=== PATIENT | female | born 1990 | race Caucasian/White ===

== ENCOUNTER 2016-02-11 13:30 | Inpatient (IN) | payer OTHER ==
[~2016-02-11] VITALS: Ht 160 cm; Wt 130.3 kg
[2016-02-11 14:30] VITALS: BP 101/50; PULSE 86; RESP 16
[2016-02-11 15:00] VITALS: Ht 160 cm; Wt 130.3 kg
[2016-02-11] MEDS ORDERED: BISACODYL (EC) 5 MG TAB PO PRN (15:00)
[2016-02-11] MEDS ORDERED: NACL 0.9% 3 ML SYG IV SCH (15:00)
[2016-02-11] MEDS ORDERED: ONDANSETRON 4 MG INJ IV PRN (15:00)
[2016-02-11] MEDS ORDERED: MAGNESIUM HYDROXIDE 30ML CUP PO PRN (15:00)
[2016-02-11] MEDS ORDERED: LORAZEPAM 2 MG INJ IV PRN (15:30)
[2016-02-11] MEDS ORDERED: ALBUTEROL 0.5% (NEB) 2.5 MG/0.5 ML AMP HHN PRN (15:30)
--- NOTE | 2016-02-11 16:32 | HP ---
DATE OF ADMISSION: 02/11/2016 TIME OF EVALUATION: 1500. REASON FOR ADMISSION: Abdominal pain. The patient was transferred from [facility]. CONSULTANTS: 1. Dr. Jesús Hernández, Gastroenterology. 2. Dr. Abner Walker, General Surgery. HISTORY OF PRESENT ILLNESS: This is a 25-year-old female, with a past medical history of morbid obesity, asthma and anxiety, who went to the emergency room at [facility] because of abdominal pain that started the morning of 02/11/2016. As per the patient, this pain woke her up from sleep. The patient verbalized abdominal pain as epigastric and right upper quadrant, with radiation to the back. The patient denied any associated nausea or vomiting. She denied eating anything unusual. As per the patient, she started having abdominal pain since 02/07/2016 that was waxing and waning over the past few days. The patient waited until 02/11/2016 until her pain became very severe before she went to the nearest emergency room. In the emergency room at [facility], the patient underwent a right upper quadrant ultrasound that showed gallstones in the region of the gallbladder neck, with no gallbladder wall thickening or pericholecystic free fluid, along with hepatic steatosis. The patient's common bile duct was measuring 4.7 mm in maximal dimension. The patient was treated with IV morphine and IV fluids and the patient was transferred to [facility] because of insurance reasons. PAST MEDICAL HISTORY: Asthma, anxiety, ovarian cyst. PAST SURGICAL HISTORY: None. HOME MEDICATIONS: 1. Advair Diskus 250/50 one inhalation b.i.d. 2. Singulair 10 mg p.o. at bedtime. 3. ProAir HFA 8.5 gram inhaled, 2 puffs q.6h. p.r.n. shortness of breath. ALLERGIES: NO KNOWN DRUG ALLERGIES. SOCIAL HISTORY: Denies any history of tobacco, alcohol or illicit drug use. The patient works in sales. The patient has 2 kids. FAMILY HISTORY: Positive family history of diabetes and hypertension. No history of heart disease. Positive family history of gallstones and cholecystectomy. REVIEW OF SYSTEMS: A 12-point review of systems were made and the review of systems are negative, other than what is mentioned in the history of present illness. PHYSICAL EXAMINATION: VITAL SIGNS: Temperature 98.6, pulse rate 86, respiratory rate 16, blood pressure 101/50, oxygen saturation 97% on room air. GENERAL: This is a morbidly obese, female, lying in bed, in no apparent distress. HEENT: Head is normocephalic and atraumatic. Eyes, anicteric sclerae. Conjunctivae are clear. ENT: Nasal septum is midline. The oral mucosa is dry. NECK: Short, with increased neck circumference. RESPIRATORY: Bilaterally diminished breath sounds. No adventitious breath sounds heard. No use of accessory muscles of respiration. CARDIAC: Regular rate and rhythm. No murmurs heard. ABDOMEN: Soft. Tender to touch in the epigastric area and right upper quadrant. No guarding. No rebound tenderness. GENITOURINARY: Deferred. EXTREMITIES: No cyanosis, no clubbing, no edema. Peripheral pulses are palpable. NEUROLOGIC: The patient is awake, alert and oriented. Cranial nerves II through XII are grossly intact. No focal weakness. LABORATORY AND DIAGNOSTIC DATA: 1. WBC 7.9, hemoglobin 14.0, hematocrit 42.4, platelet count 196. Sodium 139, potassium 4.0, chloride 99, carbon dioxide 26, BUN 9, creatinine 0.52, glucose 115, total protein 7.0, calcium 8.9, alkaline phosphatase 121. 2. Urinalysis. Urine leukocyte esterase 2+, urine microscopic WBC >50, urine protein negative. Urine ketones negative. 3. Urine test negative. 4. Right upper quadrant ultrasound that was done [facility]. Gallstone in the region of the gallbladder neck. No gallbladder wall thickening or pericholecystic free fluid is seen. Hepatic steatosis. The common bile duct measures 4.7 mm in maximal dimension. IMPRESSION: This is a 25-year-old female who went to the local emergency room with the chief complaint of abdominal pain, who was found to have evidence of cholelithiasis, who will be admitted to [facility] for further treatment and evaluation. ASSESSMENT AND PLAN: 1. Symptomatic cholelithiasis. Gallbladder ultrasound shows gallstone in the gallbladder neck. A gastroenterology consult will be obtained on this patient. The patient probably needs an MRCP, which will be ordered on this patient. Will also involve general surgery on the case. The patient will be provided with adequate pain control. The patient will be kept n.p.o. The patient will be started on IV fluids. The patient has no leukocytosis or any febrile illness. There is no evidence of any impending cholangitis. Hence, the patient will not be started on any antibiotics at this time. The patient's LFTs are within normal limits, except for alkaline phosphatase. 2. Positive urinalysis. The patient's urinalysis showed positive leukocyte esterase and a urine WBC of >50. The patient denied any urinary symptoms. The patient remains afebrile. She has no leukocytosis. Urine culture will be obtained. Will await until the urine cultures are available. 3. Asthma. No evidence of any exacerbation. The patient will be maintained on maintenance inhalers and p.r.n. inhalers. The patient will be maintained on leukotriene inhibitors. 4. Anxiety. The patient complains of anxiety; however, the patient does not take any medication specifically for anxiety. The patient will be started on p.r.n. anxiolytics. 5. Obesity. The patient is morbidly obese with a BMI of 50.9 kilograms per meter squared. A fasting lipid panel will be obtained. A hemoglobin A1c will be obtained. A dietary consult will be obtained for advice regarding diet for weight reduction. PLAN: The patient will be admitted to the inpatient medical/surgical floor. The patient will be kept n.p.o., except for medications. The patient will be started on DVT prophylaxis and gastrointestinal prophylaxis. Activities will be as tolerated. The patient will remain FULL CODE. The rest of the patient's management will be based on the clinical course, the results of the diagnostic studies, and inputs from the consultants. Based on the patient's clinical presentation, she most probably requires at least 1 midnight's stay for further management and evaluation of her clinical presentation. The case and management of this patient was fully discussed with Dr. Carreno. Approximately 50 minutes was spent on the history and physical of this patient. KRISTEN CARRENO MD, AM/TAISHA Conf#: [id number] DID#: [id number] MTDD
[2016-02-11] MEDS: D5W-0.45 NACL + KCL 10 MEQ 1,000 ML IV SCH (17:03)
[2016-02-11 17:21] LABS: ADD UMIC YES; URINE BILIRUBIN (Dip) NEGATIVE (NEGATIVE); URINE BLOOD (Dip) 2+ (NEGATIVE); URINE COLOR OR (YELLOW); URINE GLUCOSE (Dip) NEGATIVE (NEGATIVE); URINE KETONES (Dip) NEGATIVE (NEGATIVE); URINE LEUKOCYTE ESTERASE (Dip) 2+ (NEGATIVE); URINE NITRITE (Dip) NEGATIVE (NEGATIVE); URINE TOTAL PROTEIN (Dip) TRACE (NEGATIVE); URINE UROBILINOGEN (Dip) 0.2 E.U./dL (0.1-1.0)
[2016-02-11] MEDS: HYDROCODONE/APAP (5/325) TAB PO PRN (17:34)
[2016-02-11 17:52] LABS: BACTERIA,URINE MANY; SQUAMOUS EPITHELIAL CELL,UR MANY; TRICHOMONAS,URINE MODERATE
[2016-02-11] MEDS: MONTELUKAST 10 MG TAB PO SCH (20:16)
[2016-02-11] MEDS: FAMOTIDINE 20 MG INJ IV SCH (20:17)
[2016-02-11] MEDS: SALMETEROL/FLUTICASONE 250/50 INHA INH SCH (20:17)
[2016-02-11 20:30] VITALS: BP 116/56; PULSE 89; RESP 20
[2016-02-12] MEDS: D5W-0.45 NACL + KCL 10 MEQ 1,000 ML IV SCH ×4 (02:24→22:19)
[2016-02-12 05:28] LABS: ALBUMIN 3.6 g/dl (3.3-4.9); BASOPHILS % 0.2 % (0.0-2.0); EOSINOPHILS # 0.3 10^3/ul (0.0-0.5); EOSINOPHILS % 4.3 % (0.0-7.0); HEMATOCRIT 39.9 % (37.0-47.0); LYMPHOCYTES # 2.3 10^3/ul (0.8-2.9); LYMPHOCYTES % 31.8 % (15.0-51.0); MEAN CORPUSCULAR HEMOGLOBIN 28.4 pg (29.0-33.0); MEAN CORPUSCULAR HGB CONC 32.6 g/dl (32.0-37.0); MEAN CORPUSCULAR VOLUME 87.2 fl (82.0-101.0); MEAN PLATELET VOLUME 9.9 fl (7.4-10.4); MONOCYTE # 0.6 10^3/ul (0.3-0.9); MONOCYTES % 8.1 % (0.0-11.0); NEUTROPHIL # 4.1 10^3/ul (1.6-7.5); NEUTROPHILS % 55.6 % (39.0-77.0); PLATELET COUNT 199 10^3/UL (140-440); RED BLOOD COUNT 4.57 10^6/ul (4.20-5.40); RED CELL DISTRIBUTION WIDTH 12.6 % (11.5-14.5); UNCORRECTED WBC 7.3 10^3/ul (4.8-10.8); WHITE BLOOD COUNT 7.3 10^3/ul (4.8-10.8)
[2016-02-12 05:30] LABS: BILIRUBIN,INDIRECT 0.4 mg/dl (0-1.1); BILIRUBIN,TOTAL 0.4 mg/dl (0.2-1.3); CREATININE 0.64 mg/dl (0.44-1.00)
[2016-02-12 05:31] LABS: ALBUMIN/GLOBULIN RATIO 1.12; CALCIUM 8.4 mg/dl (8.4-10.2); MAGNESIUM 1.9 mg/dl (1.7-2.5); PHOSPHORUS 3.9 mg/dl (2.5-4.9); TOTAL PROTEIN 6.8 g/dl (6.1-8.1)
[2016-02-12 05:47] LABS: CONDITION 1
[2016-02-12 06:02] LABS: THYROID STIMULATING HORMONE 2.01 MIU/L (0.465-4.680)
[2016-02-12 08:00] VITALS: BP 136/72; PULSE 72; RESP 18
[2016-02-12] MEDS: FAMOTIDINE 20 MG INJ IV SCH ×2 (08:37→21:13)
[2016-02-12] MEDS: SALMETEROL/FLUTICASONE 250/50 INHA INH SCH ×2 (08:37→21:13)
--- NOTE | 2016-02-12 10:12 | PN ---
Date/Time of Note Date/Time of Note DATE: 02/12/16 TIME: 10:12 Assessment/Plan VTE Prophylaxis VTE Prophylaxis Intervention: SCD's Lines/Catheters IV [facility]ter Type [facility] Peripheral IV Urinary Cath still in place: No Assessment/Plan Chief Complaint/Hosp Course 1. Cholelithiasis. Gallbladder ultrasound shows gallstone in the gallbladder neck. Pending MRCP. General surgery and gastroenterology on the case. Continue pain control. 2. Positive urinalysis. Pending urine culture. The patient remains afebrile. 3. Asthma. No evidence of any exacerbation. The patient will be maintained on maintenance inhalers and p.r.n. inhalers. The patient will be maintained on leukotriene inhibitors. 4. Anxiety. The patient complains of anxiety; however, the patient does not take any medication specific for anxiety. Continue p.r.n. anxiolytics. 5. Obesity. The patient is morbidly obese with a BMI of 50.9 kilograms per meter squared. Weight reduction advised. 6. Fluids, electrolytes, and nutrition. NPO except for medications. 7. DVT prophylaxis. Bilateral SCDs. 8. Gastrointestinal prophylaxis. Histamine 2 receptor blockers. 9. Plan. Continue pain control. Continue IV fluids. Await MRCP. Await further inputs from gastroenterology and general surgery. Case discussed with Dr. Valverde. Problems: Subjective 24 Hr Interval Summary Free Text/Dictation Complains of abdominal pain. Denies any nausea or vomiting. Exam/Review of Systems Vital Signs Vitals Vital Signs Date Time Temp Pulse Resp B/P Pulse Ox O2 Delivery O2 Flow Rate FiO2 02/11/16 20:30 97.9 89 20 116/56 94 Room Air Intake and Output 02/11/16 02/11/16 02/12/16 15:00 23:00 07:00 Intake Total 1000 ml Balance 1000 ml Exam GENERAL: This is a morbidly obese, female, lying in bed, in no apparent distress. HEENT: Head is normocephalic and atraumatic. Eyes, anicteric sclerae. Conjunctivae are clear. ENT: Nasal septum is midline. The oral mucosa is dry. NECK: Short, with increased neck circumference. RESPIRATORY: Bilaterally diminished breath sounds. No adventitious breath sounds heard. No use of accessory muscles of respiration. CARDIAC: Regular rate and rhythm. No murmurs heard. ABDOMEN: Soft. Tender to touch in the epigastric area and right upper quadrant. No guarding. No rebound tenderness. GENITOURINARY: Deferred. EXTREMITIES: No cyanosis, no clubbing, no edema. Peripheral pulses are palpable. NEUROLOGIC: The patient is awake, alert and oriented. Cranial nerves II through XII are grossly intact. No focal weakness. Results Result Diagram: 02/12/16 0431 02/12/16 0431 Results 24 hrs Laboratory Tests Test 02/11/16 17:00 02/12/16 04:31 Urine Bacteria MANY Urine Bilirubin NEGATIVE Urine Clarity CLEAR Urine Color OR Urine Glucose NEGATIVE Urine Hemoglobin 2+ H Urine Ketones NEGATIVE Urine Leukocyte Esterase 2+ H Urine Microscopic RBC 5-10 Urine Microscopic WBC >50 Urine Nitrite NEGATIVE Urine Test NEGATIVE Urine Specific [place] 1.025 Urine Squamous Epithelial Cells MANY Urine Total Protein TRACE Urine Trichomonas MODERATE Urine Urobilinogen 0.2 E.U./dL Urine pH 5.5 Alanine Aminotransferase (ALT/SGPT) 43 Albumin 3.6 Albumin/Globulin Ratio 1.12 Alkaline Phosphatase 106 Anion Gap 14 Aspartate Amino Transf (AST/SGOT) 27 Basophils # 0.0 Basophils % 0.2 Blood Morphology Comment Blood Urea Nitrogen 8 Calcium Level 8.4 Carbon Dioxide Level 32 H Chloride Level 99 Creatinine 0.64 Direct Bilirubin 0.00 Eosinophils # 0.3 Eosinophils % 4.3 Free Thyroxine 1.27 Globulin 3.20 Glucose Level 114 Hematocrit 39.9 Hemoglobin 13.0 Hemoglobin A1c 5.6 Indirect Bilirubin 0.4 Lymphocytes # 2.3 Lymphocytes % 31.8 Magnesium Level 1.9 Mean Corpuscular Hemoglobin 28.4 L Mean Corpuscular Hemoglobin Concent 32.6 Mean Corpuscular Volume 87.2 Mean Platelet Volume 9.9 Monocytes # 0.6 Monocytes % 8.1 Neutrophils # 4.1 Neutrophils % 55.6 Nucleated Red Blood Cells # 0.0 Nucleated Red Blood Cells % 0.0 Phosphorus Level 3.9 Platelet Count 199 Potassium Level 4.0 Red Blood Count 4.57 Red Cell Distribution Width 12.6 Sodium Level 141 Thyroid Stimulating Hormone (TSH) 2.010 Total Bilirubin 0.4 Total Protein 6.8 White Blood Count 7.3 Medications Medications Current Medications Ondansetron HCl (Zofran Inj) 4 mg Q6H PRN IV NAUSEA AND/OR VOMITING; Start at 15:00 Acetaminophen/ Hydrocodone Bitart ([place] (5/325)) 1 tab Q6H PRN PO MODERATE PAIN LEVEL 4-6 Last administered on 02/11/16at 17:34; Admin Dose 1 TAB; Start 02/11/16 at 15:00 Morphine Sulfate (morphine) 2 mg Q4H PRN IV SEVERE PAIN LEVEL 7-10; Start at 15:00 Magnesium Hydroxide (Milk Of Mag) 30 ml DAILY PRN PO CONSTIPATION; Start 02/10 at 15:00 Bisacodyl (Dulcolax) 5 mg DAILY PRN PO CONSTIPATION; Start 02/11/16 at 15:00 Famotidine 20 mg 20 mg Q12 IV Last administered on 02/12/16at 08:37; Admin Dose 20 MG; Start 02/11/16 at 21:00 Potassium Chloride/Dextrose/ Sod Cl (D5-1/2ns + KCl 10 Meq) 1,000 ml @ 100 mls/ hr Q10H IV Last administered on 02/12/16at 02:24; Admin Dose 100 MLS/HR; Start 02/11/16 at 16:30 Montelukast Sodium (Singulair) 10 mg HS PO Last administered on 02/11/16at 20: 16; Admin Dose 10 MG; Start 02/11/16 at 21:00 Salmeterol Xinafoate/ Fluticasone (Advair 250/50 Diskus) 1 inh BID INH Last administered on 02/12/16at 08:37; Admin Dose 1 INH; Start 02/11/16 at 21:00 Lorazepam (Ativan) 1 mg Q6H PRN IV Anxiety; Start 02/11/16 at 15:30 KRISTEN MORRIS NP Feb 12, 2016 10:12
[2016-02-12] MEDS: HYDROCODONE/APAP (5/325) TAB PO PRN (10:41)
--- NOTE | 2016-02-12 11:07 | CONS ---
Date/Time of Note Date/Time of Note DATE: 02/12/16 TIME: 11:06 Assessment/Plan Assessment/Plan Additional Assessment/Plan [facility] INITIAL INPATIENT CONSULTATION NOTE ASSESSMENT AND PLAN: A very-pleasant 25-year-old young lady with comorbid issues including BMI 50.9, admitted through the emergency department for symptomatically cholelithiasis and biliary colic. Outside workup consistent with diagnosis. Awaiting MRCP results. Patient will likely require semi- electively laparoscopic cholecystectomy. Will follow-up after MRCP results are available. Discussed with patient and her uncle and answered all her questions to the best my ability. With above assessment, I've recommended the followin. Agree with MRCP 2. Treat symptoms 3. Semi elective laparoscopic cholecystectomy in the next available elective time slot Thank you very much for having me involved in the care of this very pleasant young lady and her wonderful family. I will continue to follow her along with you closely and will be available to answer any questions at area code [phone]. TOTAL VISIT TIME: 45 minutes of which more than half was spent in [id number] discussion with the patient, discussions with family, as well as coordination of care between multiple physicians and providers. Disclaimer: Inadvertent spelling and grammatical errors are likely due to EHR/ dictation software use and do not reflect on the quality of delivered patient care. Also, please note that the electronic time recorded on this node does not necessarily reflect the actual time of the visit. PLACE OF SERVICE: [facility], second Floor [facility] DATE OF CONSULTATION: 02/12/2016 HISTORY OF PRESENT ILLNESS: The patient is a very pleasant 25-year-old young lady with comorbid issues including BMI 50.9, admitted through the emergency department for a few day history of right upper quadrant abdominal pain associated with mild nausea and no significant vomiting. No other prior episodes similar to this. Per report, outside ultrasound showed normal gallbladder wall and normal common bile duct with a stone near the cystic duct area. MRCP was ordered but is still pending. Patient does not report any hematemesis or blood in the stool or urine. Last bowel movement was yesterday as well as flatus. No reported chronic issues with constipation or diarrhea. No changes in hearing or vision, difficulty with breathing or swallowing, prior cardiopulmonary disease new skin rashes, joint pain, musculoskeletal disease, neurologic, psychiatric, or psychologic problems. Patient described the pain as a right upper quadrant type pain without radiation, between 8 to 10 out of 10 in severity and mostly dull in character. At my visit, the patient did not have any significant pain complaints. PAST MEDICAL HISTORY 1. BMI 50.9 2. Asthma 3. Anxiety 4. Ovarian cyst PAST SURGICAL HISTORY None ALLERGIES: NO KNOWN DRUG ALLERGIES MEDICATIONS 1. Advair Diskus 250/50 one inhalation b.i.d. 2. Singulair 10 mg p.o. at bedtime. 3. ProAir HFA 8.5 gram inhaled, 2 puffs q.6h. p.r.n. shortness of breath. SOCIAL HISTORY: The patient lives with family. - Tob; - ETOH; - IVDU FAMILY HISTORY: Diabetes, hypertension, gallstone disease and cholecystectomy in the family. There are no other significant medical, surgical or oncologic issues in the family as reported by the patient or reflected in the chart. REVIEW OF SYSTEMS: No other pertinent positives or pertinent negatives in a complete 14 point review of systems other than mentioned in this note. PHYSICAL EXAMINATION GENERAL: The patient appears to be a very pleasant young lady of descent lying in bed, appearing stated age, slightly overweight and otherwise in no acute distress. BMI 50.9 VITAL SIGNS: AVSS (please also see below) HEENT: Normocephalic and atraumatic. Extraocular muscles and hearing are grossly intact bilaterally and symmetrically. Sclerae are nonicteric. Oral cavity is clear; oral mucosa appear to be pink and moist. Dentition: fair. NECK: Supple. There is no lymphadenopathy or JVD. There is no submental, submandibular or supraclavicular lymphadenopathy. CHEST: Rises symmetrically with each breath; patient is breathing comfortably. There are no audible wheezes, rales or rhonchi on the gross exam. HEART: Pulse is regular and palpable on the right wrist. Capillary refill is normal. Carotid pulses are palpable bilaterally and symmetrically in the neck. EXTREMITIES: Lower extremities contain no pitting edema around the ankles bilaterally and symmetrically. ABDOMEN: Abdomen is soft, mild to moderately tender to palpation in the right upper quadrant and nondistended. No evidence of ascites, organomegaly, caput medusae, engorged subcutaneous veins, or other abnormalities. There are no peritoneal signs or guarding. SKIN: Appears to be pink and feels warm to touch. NEUROLOGIC: Awake, alert, and follows commands appropriately. LABORATORY DATA: See below IMAGING: See electronic chart. Please note that I've personally reviewed all pertinent available images and I agree in general with their overall reported findings. Consultation Date/Type/Reason Admit Date/Time Feb 11, 2016 at 14:29 Social History Smoking Status: Never smoker Exam/Review of Systems Vital Signs Vitals Vital Signs Date Time Temp Pulse Resp B/P Pulse Ox O2 Delivery O2 Flow Rate FiO2 02/12/16 08:00 98.6 72 18 136/72 96 Room Air Intake and Output 02/11/16 02/11/16 02/12/16 15:00 23:00 07:00 Intake Total 1000 ml Balance 1000 ml Results Result Diagram: 02/12/16 0431 02/12/16 0431 Results 24 hrs Laboratory Tests Test 02/11/16 17:00 02/12/16 04:31 Urine Bacteria MANY Urine Bilirubin NEGATIVE Urine Clarity CLEAR Urine Color OR Urine Glucose NEGATIVE Urine Hemoglobin 2+ H Urine Ketones NEGATIVE Urine Leukocyte Esterase 2+ H Urine Microscopic RBC 5-10 Urine Microscopic WBC >50 Urine Nitrite NEGATIVE Urine Test NEGATIVE Urine Specific [place] 1.025 Urine Squamous Epithelial Cells MANY Urine Total Protein TRACE Urine Trichomonas MODERATE Urine Urobilinogen 0.2 E.U./dL Urine pH 5.5 Alanine Aminotransferase (ALT/SGPT) 43 Albumin 3.6 Albumin/Globulin Ratio 1.12 Alkaline Phosphatase 106 Anion Gap 14 Aspartate Amino Transf (AST/SGOT) 27 Basophils # 0.0 Basophils % 0.2 Blood Morphology Comment Blood Urea Nitrogen 8 Calcium Level 8.4 Carbon Dioxide Level 32 H Chloride Level 99 Creatinine 0.64 Direct Bilirubin 0.00 Eosinophils # 0.3 Eosinophils % 4.3 Free Thyroxine 1.27 Globulin 3.20 Glucose Level 114 Hematocrit 39.9 Hemoglobin 13.0 Hemoglobin A1c 5.6 Indirect Bilirubin 0.4 Lymphocytes # 2.3 Lymphocytes % 31.8 Magnesium Level 1.9 Mean Corpuscular Hemoglobin 28.4 L Mean Corpuscular Hemoglobin Concent 32.6 Mean Corpuscular Volume 87.2 Mean Platelet Volume 9.9 Monocytes # 0.6 Monocytes % 8.1 Neutrophils # 4.1 Neutrophils % 55.6 Nucleated Red Blood Cells # 0.0 Nucleated Red Blood Cells % 0.0 Phosphorus Level 3.9 Platelet Count 199 Potassium Level 4.0 Red Blood Count 4.57 Red Cell Distribution Width 12.6 Sodium Level 141 Thyroid Stimulating Hormone (TSH) 2.010 Total Bilirubin 0.4 Total Protein 6.8 White Blood Count 7.3 Medications Medications Current Medications Ondansetron HCl (Zofran Inj) 4 mg Q6H PRN IV NAUSEA AND/OR VOMITING; Start at 15:00 Acetaminophen/ Hydrocodone Bitart ([place] (5/325)) 1 tab Q6H PRN PO MODERATE PAIN LEVEL 4-6 Last administered on 02/12/16at 10:41; Admin Dose 1 TAB; Start 02/11/16 at 15:00 Morphine Sulfate (morphine) 2 mg Q4H PRN IV SEVERE PAIN LEVEL 7-10; Start at 15:00 Magnesium Hydroxide (Milk Of Mag) 30 ml DAILY PRN PO CONSTIPATION; Start 02/10 at 15:00 Bisacodyl (Dulcolax) 5 mg DAILY PRN PO CONSTIPATION; Start 02/11/16 at 15:00 Famotidine 20 mg 20 mg Q12 IV Last administered on 02/12/16at 08:37; Admin Dose 20 MG; Start 02/11/16 at 21:00 Potassium Chloride/Dextrose/ Sod Cl (D5-1/2ns + KCl 10 Meq) 1,000 ml @ 100 mls/ hr Q10H IV Last administered on 02/12/16at 02:24; Admin Dose 100 MLS/HR; Start 02/11/16 at 16:30 Montelukast Sodium (Singulair) 10 mg HS PO Last administered on 02/11/16at 20: 16; Admin Dose 10 MG; Start 02/11/16 at 21:00 Salmeterol Xinafoate/ Fluticasone (Advair 250/50 Diskus) 1 inh BID INH Last administered on 02/12/16at 08:37; Admin Dose 1 INH; Start 02/11/16 at 21:00 Lorazepam (Ativan) 1 mg Q6H PRN IV Anxiety; Start 02/11/16 at 15:30 Acetaminophen (Tylenol Tab) 650 mg Q6H PRN PO PAIN AND OR ELEVATED TEMP; Start 02/12/16 at 10:30 TIO LOTT M.D. Feb 12, 2016 11:07
[2016-02-12] MEDS: morphine 2 MG INJ IV PRN (15:00)
[2016-02-12 20:00] VITALS: BP 90/50; PULSE 72; RESP 18
[2016-02-12] MEDS: MONTELUKAST 10 MG TAB PO SCH (21:13)
--- NOTE | 2016-02-12 22:10 | RADRPT ---
PROCEDURE: MR Abdomen and MRCP. CLINICAL INDICATION: Right upper quadrant pain. TECHNIQUE: MRI abdomen without contrast and MRCP was performed on a 1.5 Pita high field scanner. Routine axial, sagittal and coronal sequences were obtained. 3-D coronal rotating MIP images of the biliary tree are available for review. COMPARISON: None available FINDINGS: MRI Abdomen: The liver is normal in size and homogeneous in signal intensity. No liver mass lesion or intrahepatic biliary dilatation is seen. The spleen is normal in size and homogeneous in signal intensity. The stomach is partially collapsed but grossly unremarkable. The pancreas is unremarkable. The kidneys are unremarkable. There is no evidence of hydronephrosis, hydroureter, renal mass, or r enal calculi. The adrenal glands and kidneys are symmetric and appear normal. The aorta is of normal caliber. There is no retroperitoneal lymphadenopathy. The bowel and mesentery, as visualized, are unremarkable. MRCP: The gallbladder is not visualized. The biliary tree is not dilated. Common bile duct measures 3 mm. No intrahepatic or extrahepatic biliary ductal dilatation is present. The pancreatic duct is unremarkable. IMPRESSION: 1. The gallbladder is not visualized and suggest previous cholecystectomy. 2. No evidence of intrahepatic or extrahepatic biliary ductal dilatation. 3. No evidence of choledocholithiasis. RPTAT: HLDM .El Carpenter MD, MD Date Time Electronically viewed and signed by .El Carpenter MD, on 02/12/2016 22:09 .M/
[2016-02-12 22:24] VITALS: BP 114/60; PULSE 75
[2016-02-13] MEDS: ACETAMINOPHEN 325 MG TAB PO PRN ×2 (00:33→16:49)
[2016-02-13 08:18] VITALS: BP 118/53; RESP 22
[2016-02-13] MEDS: FAMOTIDINE 20 MG INJ IV SCH ×2 (09:40→20:55)
[2016-02-13] MEDS: SALMETEROL/FLUTICASONE 250/50 INHA INH SCH ×2 (09:40→20:55)
[2016-02-13] MEDS: D5W-0.45 NACL + KCL 10 MEQ 1,000 ML IV SCH ×2 (09:49→18:30)
[2016-02-13 10:58] LABS: BASOPHILS % 0.5 % (0.0-2.0); EOSINOPHILS # 0.2 10^3/ul (0.0-0.5); EOSINOPHILS % 3.2 % (0.0-7.0); LYMPHOCYTES # 1.6 10^3/ul (0.8-2.9); LYMPHOCYTES % 25.3 % (15.0-51.0); MEAN CORPUSCULAR HEMOGLOBIN 28.2 pg (29.0-33.0); MEAN CORPUSCULAR HGB CONC 32.5 g/dl (32.0-37.0); MEAN CORPUSCULAR VOLUME 86.5 fl (82.0-101.0); MEAN PLATELET VOLUME 9.6 fl (7.4-10.4); MONOCYTE # 0.4 10^3/ul (0.3-0.9); MONOCYTES % 6.9 % (0.0-11.0); NEUTROPHILS % 64.1 % (39.0-77.0); PLATELET COUNT 180 10^3/UL (140-440); RED BLOOD COUNT 4.62 10^6/ul (4.20-5.40); RED CELL DISTRIBUTION WIDTH 12.9 % (11.5-14.5); UNCORRECTED WBC 6.2 10^3/ul (4.8-10.8); WHITE BLOOD COUNT 6.2 10^3/ul (4.8-10.8)
[2016-02-13 11:06] LABS: CONDITION 1
[2016-02-13 11:21] LABS: ALBUMIN 3.8 g/dl (3.3-4.9)
[2016-02-13 11:22] LABS: POTASSIUM 3.7 mmol/L (3.5-5.1)
[2016-02-13 11:24] LABS: ALBUMIN/GLOBULIN RATIO 1.18; BILIRUBIN,INDIRECT 0.3 mg/dl (0-1.1); BILIRUBIN,TOTAL 0.3 mg/dl (0.2-1.3); CREATININE 0.51 mg/dl (0.44-1.00)
[2016-02-13 11:25] LABS: CALCIUM 8.7 mg/dl (8.4-10.2)
[2016-02-13 11:26] LABS: MAGNESIUM 1.9 mg/dl (1.7-2.5); PHOSPHORUS 3.6 mg/dl (2.5-4.9)
--- NOTE | 2016-02-13 11:45 | PN ---
Date/Time of Note Date/Time of Note DATE: 02/13/16 TIME: 11:43 Assessment/Plan VTE Prophylaxis VTE Prophylaxis Intervention: ambulation, SCD's Lines/Catheters IV Catheter Type (from [facility]): Peripheral IV Urinary Cath still in place: No Assessment/Plan Chief Complaint/Hosp Course 1. Cholelithiasis. Gallbladder ultrasound shows gallstone in the gallbladder neck. MRCP negative for choledocholithiasis. Of note, MRCP suggesting prior cholecystectomy. This could be a discrepancy (ultrasound from [facility] done on 02/11/2016 showing gall bladder). The patient denies any prior surgical history. General surgery and gastroenterology on the case. Continue pain control. 2. Urinary tract infection. Will start the patient on antibiotics. 3. Asthma. No evidence of any exacerbation. The patient will be maintained on maintenance inhalers and p.r.n. inhalers. The patient will be maintained on leukotriene inhibitors. 4. Anxiety. The patient complains of anxiety; however, the patient does not take any medication specific for anxiety. Continue p.r.n. anxiolytics. 5. Obesity. The patient is morbidly obese with a BMI of 50.9 kilograms per meter squared. Weight reduction advised. 6. Fluids, electrolytes, and nutrition. Clear liquids. Continue IV fluids. 7. DVT prophylaxis. Bilateral SCDs. 8. Gastrointestinal prophylaxis. Histamine 2 receptor blockers. 9. Plan. Continue pain control. Continue IV fluids. Start antibiotics. Await further inputs from gastroenterology and general surgery. Case discussed with Dr. Valverde. Problems: Subjective 24 Hr Interval Summary Free Text/Dictation Abdominal pain well controlled with analgesics. No nausea/vomiting. Exam/Review of Systems Vital Signs Vitals Vital Signs Date Time Temp Pulse Resp B/P Pulse Ox O2 Delivery O2 Flow Rate FiO2 02/13/16 08:18 98.5 81 22 118/53 97 02/12/16 20:00 Room Air Intake and Output 02/12/16 02/12/16 02/13/16 15:00 23:00 07:00 Intake Total 1100 ml 1250 ml Balance 1100 ml 1250 ml Exam GENERAL: This is a morbidly obese, female, lying in bed, in no apparent distress. HEENT: Head is normocephalic and atraumatic. Eyes, anicteric sclerae. Conjunctivae are clear. ENT: Nasal septum is midline. The oral mucosa is dry. NECK: Short, with increased neck circumference. RESPIRATORY: Bilaterally diminished breath sounds. No adventitious breath sounds heard. No use of accessory muscles of respiration. CARDIAC: Regular rate and rhythm. No murmurs heard. ABDOMEN: Soft. Tender to touch in the epigastric area and right upper quadrant. No guarding. No rebound tenderness. GENITOURINARY: Deferred. EXTREMITIES: No cyanosis, no clubbing, no edema. Peripheral pulses are palpable. NEUROLOGIC: The patient is awake, alert and oriented. Cranial nerves II through XII are grossly intact. No focal weakness. Results Result Diagram: 02/13/16 1032 02/13/16 1032 Results 24 hrs Laboratory Tests Test 02/13/16 10:30 02/13/16 10:32 Magnesium Level 1.9 Phosphorus Level 3.6 Alanine Aminotransferase (ALT/SGPT) 38 Albumin 3.8 Albumin/Globulin Ratio 1.18 Alkaline Phosphatase 115 Anion Gap 13 Aspartate Amino Transf (AST/SGOT) 23 Basophils # 0.0 Basophils % 0.5 Blood Morphology Comment Blood Urea Nitrogen 4 L Calcium Level 8.7 Carbon Dioxide Level 30 Chloride Level 101 Creatinine 0.51 Direct Bilirubin 0.00 Eosinophils # 0.2 Eosinophils % 3.2 Globulin 3.20 Glucose Level 113 Hematocrit 40.0 Hemoglobin 13.0 Indirect Bilirubin 0.3 Lymphocytes # 1.6 Lymphocytes % 25.3 Mean Corpuscular Hemoglobin 28.2 L Mean Corpuscular Hemoglobin Concent 32.5 Mean Corpuscular Volume 86.5 Mean Platelet Volume 9.6 Monocytes # 0.4 Monocytes % 6.9 Neutrophils # 4.0 Neutrophils % 64.1 Nucleated Red Blood Cells # 0.0 Nucleated Red Blood Cells % 0.0 Platelet Count 180 Potassium Level 3.7 Red Blood Count 4.62 Red Cell Distribution Width 12.9 Sodium Level 140 Total Bilirubin 0.3 Total Protein 7.0 White Blood Count 6.2 Medications Medications Current Medications Ondansetron HCl (Zofran Inj) 4 mg Q6H PRN IV NAUSEA AND/OR VOMITING; Start at 15:00 Acetaminophen/ Hydrocodone Bitart ([place] (5/325)) 1 tab Q6H PRN PO MODERATE PAIN LEVEL 4-6 Last administered on 02/12/16at 10:41; Admin Dose 1 TAB; Start 02/11/16 at 15:00 Morphine Sulfate (morphine) 2 mg Q4H PRN IV SEVERE PAIN LEVEL 7-10 Last administered on 02/12/16at 15:00; Admin Dose 2 MG; Start 02/11/16 at 15:00 Magnesium Hydroxide (Milk Of Mag) 30 ml DAILY PRN PO CONSTIPATION; Start 02/10 at 15:00 Bisacodyl (Dulcolax) 5 mg DAILY PRN PO CONSTIPATION Last administered on 06:09; Admin Dose 5 MG; Start 02/11/16 at 15:00 Famotidine 20 mg 20 mg Q12 IV Last administered on 02/13/16 09:40; Admin Dose 20 MG; Start 02/11/16 at 21:00 Potassium Chloride/Dextrose/ Sod Cl (D5-1/2ns + KCl 10 Meq) 1,000 ml @ 100 mls/ hr Q10H IV Last administered on 02/13/16 09:49; Admin Dose 100 MLS/HR; Start 02/11/16 at 16:30 Montelukast Sodium (Singulair) 10 mg HS PO Last administered on 02/12/16at 21: 13; Admin Dose 10 MG; Start 02/11/16 at 21:00 Salmeterol Xinafoate/ Fluticasone (Advair 250/50 Diskus) 1 inh BID INH Last administered on 02/13/16 09:40; Admin Dose 1 INH; Start 02/11/16 at 21:00 Lorazepam (Ativan) 1 mg Q6H PRN IV Anxiety; Start 02/11/16 at 15:30 Acetaminophen (Tylenol Tab) 650 mg Q6H PRN PO PAIN AND OR ELEVATED TEMP Last administered on 02/13/16 00:33; Admin Dose 650 MG; Start 02/12/16 at 10:30 KRISTEN MORRIS NP Feb 13, 2016 11:45
--- NOTE | 2016-02-13 12:00 | PN ---
Date/Time of Note Date/Time of Note DATE: 02/13/16 TIME: 12:00 Assessment/Plan Lines/Catheters IV Catheter Type (from Nrs): Peripheral IV [place] in Place (from [facility]): No Assessment/Plan Assessment/Plan [facility] In[facility] Progress Note Date of Service: 02/13/2016 Today's Assessment & Plan: Overall stable with ongoing issues with right upper quadrant pain. MRCP results indicated lack of visualization of gallbladder on the official report, but my review as well as rechecking with the radiologist indicated that the patient still has her gallbladder in place. She can still benefit from laparoscopic cholecystectomy and we have her on the schedule for tomorrow morning. I explained all of this to the patient and answered all her questions to the best my ability. This visit was also used to get consent for the operation with the patient. (No family present during my discussion with the patient today). With above assessment, I've recommended the following for today: 1. Keep in-house 2. To the operating room in the next available semi elective time slot Thank you again for your great care of this very pleasant young lady and her wonderful family. If there are any questions, please feel free to call me at . TOTAL VISIT TIME: 20 minutes of which more than half was spent in [id number] discussion with the patient as well as coordination of care between multiple physicians and providers. Disclaimer: Inadvertent spelling and grammatical errors are likely due to EHR/ dictation software use and do not reflect on the quality of delivered patient care. Also, please note that the electronic time recorded on this node does not necessarily reflect the actual time of the visit. Updated Clinical Summary: A very-pleasant 25-year-old young lady with comorbid issues including BMI 50.9, admitted through the emergency department for symptomatically cholelithiasis and biliary colic. Outside workup consistent with diagnosis. Awaiting MRCP results. Patient will likely require semi-electively laparoscopic cholecystectomy. MRCP results 02/11/17 indicated lack of visualization of gallbladder on the official report, but my review as well as rechecking with the radiologist indicated that the patient still has her gallbladder in place. Comorbidity/PMHx List: 1. BMI 50.9 2. Asthma 3. Anxiety 4. Ovarian cyst Subjective: No major events or complaints; still with abdominal pain and under semi- adequate control with medications; no n/v/d; no sob or cp; + flatus; + BM and normal; + activity Objective: Vitals: See below I's & O's: See below Exam: GENERAL: On exam, the patient was lying in bed and appeared to be comfortable and in no acute distress. ABDOMEN: Soft, nontender and nondistended. There are no peritoneal signs or guarding. SKIN: Skin appears to be pink and feels warm to touch. NEUROLOGIC: Patient is awake, alert, and follows commands appropriately. Labs: See below Exam/Review of Systems Vital Signs Vitals Vital Signs Date Time Temp Pulse Resp B/P Pulse Ox O2 Delivery O2 Flow Rate FiO2 02/13/16 08:18 98.5 81 22 118/53 97 02/12/16 20:00 Room Air Intake and Output 02/12/16 02/12/16 02/13/16 15:00 23:00 07:00 Intake Total 1100 ml 1250 ml Balance 1100 ml 1250 ml Results Result Diagram: 02/13/16 1032 02/13/16 1032 TIO LOTT M.D. Feb 13, 2016 12:00
[2016-02-13] MEDS: morphine 2 MG INJ IV PRN (12:23)
[2016-02-13] MEDS ORDERED: CEFTRIAXONE 2 GM/50 ML (PMX) 50 ML IVPB SCH (13:00)
[2016-02-13 20:03] VITALS: BP 112/56; RESP 21
[2016-02-13] MEDS: MONTELUKAST 10 MG TAB PO SCH (20:55)
[2016-02-14] VITALS (13 sets, daily range): BP systolic 85–135; BP diastolic 52–77; PULSE 76–98; RESP 12–18
[2016-02-14] MEDS: D5W-0.45 NACL + KCL 10 MEQ 1,000 ML IV SCH ×2 (04:45→17:43)
[2016-02-14 06:14] LABS: BASOPHILS % 0.5 % (0.0-2.0); EOSINOPHILS # 0.3 10^3/ul (0.0-0.5); EOSINOPHILS % 3.7 % (0.0-7.0); HEMOGLOBIN 13.1 g/dl (12.0-16.0); LYMPHOCYTES # 2.3 10^3/ul (0.8-2.9); LYMPHOCYTES % 31.5 % (15.0-51.0); MEAN CORPUSCULAR HEMOGLOBIN 28.4 pg (29.0-33.0); MEAN CORPUSCULAR HGB CONC 32.7 g/dl (32.0-37.0); MEAN CORPUSCULAR VOLUME 86.8 fl (82.0-101.0); MEAN PLATELET VOLUME 9.8 fl (7.4-10.4); MONOCYTE # 0.6 10^3/ul (0.3-0.9); MONOCYTES % 7.9 % (0.0-11.0); NEUTROPHILS % 56.4 % (39.0-77.0); PLATELET COUNT 179 10^3/UL (140-440); RED BLOOD COUNT 4.61 10^6/ul (4.20-5.40); RED CELL DISTRIBUTION WIDTH 12.3 % (11.5-14.5); UNCORRECTED WBC 7.2 10^3/ul (4.8-10.8); WHITE BLOOD COUNT 7.2 10^3/ul (4.8-10.8)
[2016-02-14 06:26] LABS: CONDITION 1
[2016-02-14 06:52] LABS: ALBUMIN 3.6 g/dl (3.3-4.9); POTASSIUM 3.4 mmol/L (3.5-5.1)
[2016-02-14 06:54] LABS: CREATININE 0.54 mg/dl (0.44-1.00)
[2016-02-14 06:55] LABS: ALBUMIN/GLOBULIN RATIO 1.12; BILIRUBIN,INDIRECT 0.2 mg/dl (0-1.1); BILIRUBIN,TOTAL 0.2 mg/dl (0.2-1.3); TOTAL PROTEIN 6.8 g/dl (6.1-8.1)
[2016-02-14 06:56] LABS: CALCIUM 8.5 mg/dl (8.4-10.2)
[2016-02-14] MEDS: FAMOTIDINE 20 MG INJ IV SCH ×2 (09:00→21:30)
[2016-02-14] MEDS: SALMETEROL/FLUTICASONE 250/50 INHA INH SCH ×2 (09:00→21:30)
[2016-02-14] MEDS ORDERED: BUPIVACAINE 0.25%/EPI (SDV) 30 ML INJ ONE (10:12)
[2016-02-14] MEDS ORDERED: PIPER-TAZO 3.375 GM IV (PMX) 100 ML ONE (10:22)
--- NOTE | 2016-02-14 11:42 | HPN ---
Date/Time of Note Date/Time of Note DATE: 02/14/16 TIME: 11:42 Interval H&P Admission Note Pt. seen H&P reviewed: No system changes Pt. seen H&P reviewed. No system changes (I attest that I have seen and examined the patient and reviewed the operation in detail, as well as its risks , benefits and alternatives of the operation). I attest that I have seen and examined the patient and reviewed in detail the operation, and its associated risks, benefits and alternative. I have answered all the patient's questions to the best of my ability and the patient wishes to proceed. Please refer to rest of electronic medical record for additional updates. TIO LOTT M.D. Feb 14, 2016 11:42
[2016-02-14] MEDS ORDERED: MIDAZOLAM 1 MG/ML 2 ML INJ ONE (12:03)
[2016-02-14] MEDS ORDERED: PHENYLephrine (100 MCG/ML) 5ML SYG ONE (12:19)
[2016-02-14] MEDS ORDERED: morphine 10 MG INJ ONE (13:36)
[2016-02-14] MEDS ORDERED: ROCURONIUM 50 MG INJ ONE (13:39)
[2016-02-14] MEDS ORDERED: PROPOFOL 40 ML ONE (13:39)
[2016-02-14] MEDS ORDERED: LIDOCAINE 2% (SDV) 5 ML INJ ONE (13:39)
[2016-02-14] MEDS ORDERED: NEOSTIGMINE 3 MG/3 ML SYRINGE ONE (13:40)
[2016-02-14] MEDS ORDERED: GLYCOPYRROLATE 0.4 MG INJ ONE (13:40)
[2016-02-14] MEDS ORDERED: ONDANSETRON 4 MG INJ ONE (13:40)
[2016-02-14] MEDS ORDERED: morphine (1 MG/ML) 10ML SYRINGE IV PRN (14:00)
[2016-02-14] MEDS ORDERED: ONDANSETRON 4 MG INJ IV PRN (14:00)
[2016-02-14] MEDS ORDERED: DIPHENHYDRAMINE 50 MG INJ IV PRN (14:00)
[2016-02-14] MEDS ORDERED: MEPERIDINE 25 MG INJ IV PRN (14:00)
--- NOTE | 2016-02-14 14:16 | OPR ---
Date/Time of Note Date/Time of Note DATE: 02/14/16 TIME: 14:09 Operative Report Operative Findings [facility] INPATIENT OPER[facility]IVE NOTE PLACE OF SERVICE: [facility] DATE OF SURGERY: 02/14/2016 PREOPERATIVE DIAGNOSIS: 1. Symptomatic cholelithiasis, possible early acute cholecystitis 2. Asthma 3. Anxiety 4. Ovarian cyst 5. BMI 50.9 POSTOPERATIVE DIAGNOSIS: 1. Symptomatic cholelithiasis, possible early acute cholecystitis 2. Asthma 3. Anxiety 4. Ovarian cyst 5. BMI 50.9 OPERATION: 1. Laparoscopic cholecystectomy SURGEON: Tio Walker M.D. [employer] CLEANER INSPECTOR: None ANESTHESIA: General endotracheal tube anesthesia ANESTHESIOLOGIST: Modesto Young M.D. BRIEF SUMMARY: A somewhat challenging but otherwise uncomplicated laparoscopic cholecystectomy was performed with findings of early acute cholecystitis. BRIEF HISTORY: The patient is a very pleasant 25-year-old young lady with comorbid issues including BMI 50.9, admitted through the emergency department for symptomatically cholelithiasis and biliary colic. Outside workup consistent with diagnosis. MRCP negative for choledocholithiasis. I met with the patient ( no family present during any of my discussions with the patient) and counseled her regarding the possible options of treatment, and I strongly suggested a laparoscopic, possible open cholecystectomy. We reviewed the operation in detail as well as the risks, benefits, alternatives, and expected outcomes of this operation. After careful consideration of all the risks, benefits, and alternatives, the patient and family appeared to understand those risks and wished to proceed with surgery. For a detailed report of my consultation with patient and family, please refer to my separate consultation note. STATEMENT OF THE INFORMED CONSENT: The patient appeared to understand the risks of the operation to include, but not be limited to risk of postoperative pain and scar tissue, possible infection or bleeding requiring other interventions such as opening the wound, placement of drainage catheters, or other operative interventions; possible injury to surrounding to structures including bowel, bladder, bile duct, or blood vessels, or solid organs such as liver, kidney, or pancreas requiring other interventions or procedures; possible leakage of bile from surgical clip sites, suture lines, or worse, from common bile duct injury, causing significant increase in morbidity and mortality and requiring multiple interventions including but not limited to, placement of drainage catheters, imaging studies, as well as operative interventions; possible other source of sepsis such as urinary tract infections or pneumonias, or other sources of potentially life threatening problems such as deep venous thrombus formation causing pulmonary embolism, myocardial arrhythmias and infarctions, and even . We also briefly discussed the potential need to receive blood products and their potential complications of blood transfusion reactions, transmission of infections, or other complications. After careful consideration of all their options, the patient appeared to understand and wished to proceed with surgery. DESCRIPTION OF PROCEDURE: After obtaining informed consent, the patient was brought into the operating room and was placed in a normal supine position, where successful general endotracheal tube anesthesia was performed. The patient 's abdominal skin was prepped and draped, from the nipple line down to the level of the groins, in the usual sterile fashion. Intravenous access was already in place, and appropriately chosen and dosed prophylactic intravenous antimicrobials were administered. We then called a surgical time-out where patient's identification, date of , nature of the operation, allergies, presence of intravenous antimicrobials, presence of needed equipment, and any other concerns were reviewed and agreed upon by all members of the operating room team. We then started the operation by placing a 5-mm skin incision in the right- upper quadrant, subcostal midclavicular line, and introduced a 5-mm [employer] trocar into the peritoneal space, visualizing all the layers of the abdominal wall as we entered. Note that there was no indication of any injury to underlying structures once we entered the peritoneum. We did however noticed that the trocar was deep in the abdominal cavity and in order to ensure decreasing of safety of the operation, I placed another 5 mm skin incision in the left mid quadrant and inserted another 5 mm [employer] trocar which was extra long into the peritoneal space. We insufflated the abdominal cavity to a maximum pressure of 15 mmHg, again, confirmed lack of any injury to underlying structures prior to visualizing the rest of the abdominal cavity. We found the fundus of the gallbladder to be visible. Gallbladder could not be seen. There was no evidence of malignancy. No evidence of calcifications or significant issues with adhesions, or other abnormalities. The liver appeared to be grossly normal. With this information, we went a head and placed the other trocars under direct visualization, after injecting their sites with 0.25% Marcaine with epinephrine , placing a 5-mm trocar in the umbilical midline area, a 5-mm trocar in the right anterior axillary line, and a 12-mm trocar in the midline subxiphoid region. With our instruments in place, we had excellent visualization and access to the right-upper quadrant. We then we grasped the fundus of the gallbladder and pointed up towards the right-upper quadrant. We were then able to grasp the infundibulum and pull it out in order to expose the critical triangle of Calot. We then placed our usual serosal cuts along the long axis of the gallbladder 1 cm away from its attachment to the liver bed up towards the fundus, and then joined these 2 lines under the infundibulum, taking care not to deliver any energy to underlying structures. To maximize a degree of safety of the operation, we took the gallbladder top down using cautery. Note that we used the extra 5 mm trocar in the left mid quadrant to give us better exposure due to the significant amount of intra-abdominal fat and bowel content that was present. We then performed meticulous dissection to identify and circumferentially isolate both the cystic duct and cystic artery, prior to transecting them between 2 surgical Endoclips, proximally and one distally on the cystic artery , and 3 surgical endoclips proximally and one distally on the cystic duct, transecting them using cold scissors and only after making sure that these were the only 2 structures going into the gallbladder. We then shaved the gallbladder off the gallbladder bed using cautery, and then delivered it out inside of an EndoCatch bag through the 12-mm trocar site with enlarging the fascia and without contaminating the wound. The gallbladder was sent to Pathology for evaluation. Returning to the abdominal cavity, we ensured that there was adequate hemostasis and bile-stasis prior to removal of all of or equipment, including the pneumoperitoneum, and then reapproximating the 12-mm trocar site with figure -of-eight 0 Vicryl sutures, followed by washing the wounds with copious amounts of normal saline, and then reapproximating the skin using interrupted 4-0 Monocryl sutures. Light dressing was then applied. At the end of the operation, both the sponge count and needle count were reportedly correct x2. The patient tolerated the procedure without any reported complications. ESTIMATED BLOOD LOSS: 10 mL BLOOD OR BLOOD PRODUCT TRANSFUSIONS: None to my knowledge. SPECIMENS: 1. Gallbladder COMPLICATIONS: None. DISPOSITION: Recovery area. Disclaimer: Inadvertent spelling and grammatical errors are likely due to EHR/ dictation software use and do not reflect on the quality of delivered patient care. TIO WALKER M.D. Feb 14, 2016 14:16
[2016-02-14] MEDS: FENTAnyl 50 MCG/ML VIAL IV PRN ×4 (14:24→14:49)
[2016-02-14] MEDS ORDERED: HYDROmorphONE 1 MG/ML SYG IV PRN (14:30)
[2016-02-14] MEDS ORDERED: HYDROCODONE/APAP (5/325) TAB PO PRN ×2 (14:30)
[2016-02-14] MEDS ORDERED: BISACODYL 10 MG SUPP PR PRN (14:30)
[2016-02-14] MEDS ORDERED: NA PHOSPHATE/BIPHOS 133 ML ENEMA PR PRN (14:30)
[2016-02-14] MEDS ORDERED: DOCUSATE SODIUM 100 MG CAP PO PRN (14:30)
[2016-02-14] MEDS ORDERED: POTASSIUM CHLORIDE 50 ML IVPB ONE (14:30)
--- NOTE | 2016-02-14 14:39 | PN ---
Date/Time of Note Date/Time of Note DATE: 02/14/16 TIME: 14:36 Assessment/Plan VTE Prophylaxis VTE Prophylaxis Intervention: SCD's Lines/Catheters IV [facility]ter Type (from [facility]): Peripheral IV Urinary Cath still in place: No Assessment/Plan Chief Complaint/Hosp Course Assessment and plan 1. Cholelithiasis. Patient did have MRCP negative for choledocholithiasis. Patient was with symptomatic pain. Patient tentatively for [place] Cholecystectomy 2. UTI. Patient be started on antibiotics. We'll follow-up 3. History of asthma. No active bronchospasm noted. We'll provide with bronchodilators as needed 4. History of anxiety. We'll provide with anxiolytics prn 5. Morbid obesity. Reduction advised DVT prophylaxis SCDs GERD prophylaxis: H2 hafsa Disposition and plan: s/p lap-Cholecystectomy. Follow-up. Care. We'll provide with analgesics as needed. Discussed plan of care with Dr. Beck Problems: Subjective 24 Hr Interval Summary Free Text/Dictation Patient for laparoscopic cholecystectomy Exam/Review of Systems Vital Signs Vitals Vital Signs Date Time Temp Pulse Resp B/P Pulse Ox O2 Delivery O2 Flow Rate FiO2 02/14/16 14:29 86 14 119/68 99 Nasal Cannula 02/14/16 14:19 2.0 02/14/16 13:54 98.6 Intake and Output 02/13/16 02/13/16 02/14/16 15:00 23:00 07:00 Intake Total 1410 ml 1550 ml Balance 1410 ml 1550 ml Exam Patient for laparoscopic cholecystectomy Results Result Diagram: 02/14/16 0435 02/14/16 0435 Results 24 hrs Laboratory Tests Test 02/14/16 04:35 Alanine Aminotransferase (ALT/SGPT) 35 Albumin 3.6 Albumin/Globulin Ratio 1.12 Alkaline Phosphatase 106 Anion Gap 16 Aspartate Amino Transf (AST/SGOT) 22 Basophils # 0.0 Basophils % 0.5 Blood Morphology Comment Blood Urea Nitrogen 4 L Calcium Level 8.5 Carbon Dioxide Level 28 Chloride Level 101 Creatinine 0.54 Direct Bilirubin 0.00 Eosinophils # 0.3 Eosinophils % 3.7 Globulin 3.20 Glucose Level 89 Hematocrit 40.0 Hemoglobin 13.1 Indirect Bilirubin 0.2 Lymphocytes # 2.3 Lymphocytes % 31.5 Magnesium Level 2.0 Mean Corpuscular Hemoglobin 28.4 L Mean Corpuscular Hemoglobin Concent 32.7 Mean Corpuscular Volume 86.8 Mean Platelet Volume 9.8 Monocytes # 0.6 Monocytes % 7.9 Neutrophils # 4.0 Neutrophils % 56.4 Nucleated Red Blood Cells # 0.0 Nucleated Red Blood Cells % 0.0 Phosphorus Level 4.0 Platelet Count 179 Potassium Level 3.4 L Red Blood Count 4.61 Red Cell Distribution Width 12.3 Sodium Level 142 Total Bilirubin 0.2 Total Protein 6.8 White Blood Count 7.2 Medications Medications Current Medications Ondansetron HCl (Zofran Inj) 4 mg Q6H PRN IV NAUSEA AND/OR VOMITING; Start at 15:00 Acetaminophen/ Hydrocodone Bitart ([place] (5/325)) 1 tab Q6H PRN PO MODERATE PAIN LEVEL 4-6 Last administered on 02/12/16at 10:41; Admin Dose 1 TAB; Start 02/11/16 at 15:00 Morphine Sulfate (morphine) 2 mg Q4H PRN IV SEVERE PAIN LEVEL 7-10 Last administered on 02/13/16 12:23; Admin Dose 2 MG; Start 02/11/16 at 15:00 Magnesium Hydroxide (Milk Of Mag) 30 ml DAILY PRN PO CONSTIPATION; Start 02/10 at 15:00 Bisacodyl (Dulcolax) 5 mg DAILY PRN PO CONSTIPATION Last administered on 06:09; Admin Dose 5 MG; Start 02/11/16 at 15:00 Famotidine 20 mg 20 mg Q12 IV Last administered on 02/13/16 20:55; Admin Dose 20 MG; Start 02/11/16 at 21:00 Potassium Chloride/Dextrose/ Sod Cl (D5-1/2ns + KCl 10 Meq) 1,000 ml @ 100 mls/ hr Q10H IV Last administered on 02/14/16 04:45; Admin Dose 100 MLS/HR; Start 02/11/16 at 16:30 Montelukast Sodium (Singulair) 10 mg HS PO Last administered on 02/13/16 20:55 ; Admin Dose 10 MG; Start 02/11/16 at 21:00 Salmeterol Xinafoate/ Fluticasone (Advair 250/50 Diskus) 1 inh BID INH Last administered on 02/13/16 20:55; Admin Dose 1 INH; Start 02/11/16 at 21:00 Lorazepam (Ativan) 1 mg Q6H PRN IV Anxiety; Start 02/11/16 at 15:30 Acetaminophen 650 mg 650 mg Q6H PRN PO PAIN AND OR ELEVATED TEMP Last administered on 02/13/16t 16:49; Admin Dose 650 MG; Start 02/12/16 at 10:30 Potassium Chloride/Sodium Chloride (KCl/NS) 110 ml @ 55 mls/hr ONCE ONCE IV ; Start 02/14/16 at 15:30; Stop 02/14/16 at 17:29 Acetaminophen/ Hydrocodone Bitart ([place] (5/325)) 1 tab Q4H PRN PO PAIN LEVEL 4 -7; Start 02/14/16 at 14:30 Acetaminophen/ Hydrocodone Bitart ([place] (5/325)) 2 tab Q4H PRN PO PAIN LEVEL 7 -10; Start 02/14/16 at 14:30 Hydromorphone HCl (Dilaudid) 0.5 mg Q2H PRN IV PAIN; Start 02/14/16 at 14:30 Hydromorphone HCl (Dilaudid) 1 mg Q2H PRN IV PAIN; Start 02/14/16 at 14:30 Docusate Sodium (Colace) 100 mg BID PRN PO CONSTIPATION; Start 02/14/16 at 14:30 Bisacodyl (Dulcolax Supp) 10 mg BID@03,15 PRN PA CONSTIPATION; Start 02/14/16 at 14:30 Sodium Biphosphate/ Sodium Phosphate (Fleet Enema) 133 ml BID PRN PA CONSTIPATION; Start 02/14/16 at 14:30 Enoxaparin Sodium (Lovenox) 40 mg DAILY SC ; Start 02/15/16 at 09:00 Docusate Sodium (Colace) 100 mg BID PO ; Start 02/16/16 at 09:00; Status Future Hold Bisacodyl (Dulcolax Supp) 10 mg BID@03,15 PA ; Start 02/16/16 at 03:00 LIO MCKINNEY Feb 14, 2016 14:39
[2016-02-14] MEDS ORDERED: KCL 20 MEQ in NS 100 ML IV ONE (15:30)
[2016-02-14] MEDS: HYDROmorphONE 1 MG/ML SYG IV PRN ×3 (15:58→21:31)
[2016-02-14] MEDS: MONTELUKAST 10 MG TAB PO SCH (21:30)
[2016-02-15] MEDS: HYDROmorphONE 1 MG/ML SYG IV PRN ×3 (00:09→11:48)
[2016-02-15] MEDS: D5W-0.45 NACL + KCL 10 MEQ 1,000 ML IV SCH ×2 (00:30→06:54)
[2016-02-15 05:22] LABS: BASOPHILS % 0.3 % (0.0-2.0); EOSINOPHILS # 0.1 10^3/ul (0.0-0.5); EOSINOPHILS % 0.6 % (0.0-7.0); HEMATOCRIT 37.4 % (37.0-47.0); HEMOGLOBIN 12.4 g/dl (12.0-16.0); LYMPHOCYTES # 1.4 10^3/ul (0.8-2.9); LYMPHOCYTES % 15.3 % (15.0-51.0); MEAN CORPUSCULAR HEMOGLOBIN 28.7 pg (29.0-33.0); MEAN CORPUSCULAR HGB CONC 33.1 g/dl (32.0-37.0); MEAN CORPUSCULAR VOLUME 86.6 fl (82.0-101.0); MEAN PLATELET VOLUME 9.4 fl (7.4-10.4); MONOCYTE # 0.6 10^3/ul (0.3-0.9); MONOCYTES % 6.8 % (0.0-11.0); NEUTROPHIL # 7.3 10^3/ul (1.6-7.5); PLATELET COUNT 193 10^3/UL (140-440); RED BLOOD COUNT 4.32 10^6/ul (4.20-5.40); RED CELL DISTRIBUTION WIDTH 12.4 % (11.5-14.5); UNCORRECTED WBC 9.4 10^3/ul (4.8-10.8); WHITE BLOOD COUNT 9.4 10^3/ul (4.8-10.8)
[2016-02-15 05:28] LABS: POTASSIUM 3.6 mmol/L (3.5-5.1)
[2016-02-15 05:30] LABS: CONDITION 1; CREATININE 0.61 mg/dl (0.44-1.00)
[2016-02-15 05:31] LABS: CALCIUM 8.3 mg/dl (8.4-10.2)
[2016-02-15 07:53] VITALS: BP 96/49; RESP 18
[2016-02-15] MEDS ORDERED: ENOXAPARIN 40 MG/0.4 ML SYG SC SCH (09:00)
[2016-02-15] MEDS: SALMETEROL/FLUTICASONE 250/50 INHA INH SCH (09:47)
[2016-02-15] MEDS: FAMOTIDINE 20 MG INJ IV SCH (09:47)
[2016-02-15] MEDS ORDERED: SENN-53 PO (11:53)
[2016-02-15] MEDS ORDERED: CIPR500T4 PO (11:53)
[2016-02-15] MEDS ORDERED: HYDR-3498 PO (11:53)
[2016-02-15] MEDS ORDERED: ALBU18HF INHALATION (11:53)
[2016-02-15] MEDS ORDERED: DOCU-144 PO (11:53)
[2016-02-15] MEDS ORDERED: ADV25050 INH (11:53)
--- NOTE | 2016-02-15 13:56 | PDOCDIS ---
Discharge Instructions DIAGNOSIS Discharge Diagnosis: 1. Symptomatic cholelithiasis 2. Morbid obesity CONDITION Patient Condition: Stable HOME CARE INSTRUCTIONS: Special Diet: clear liquid FOLLOW UP/APPOINTMENTS Appointments 1. Follow up with Dr. Abnre Walker in one week OTHER ORDERS: Other Orders: 1. Call Dr. Walker if you have worsening abdominal pain/nausea/vomiting LIO MCKINNEY Feb 15, 2016 13:56
[2016-02-15] MEDS: ACETAMINOPHEN 325 MG TAB PO PRN (14:09)
--- NOTE | 2016-02-15 15:35 | PN ---
Date/Time of Note Date/Time of Note DATE: 02/15/16 TIME: 15:32 Assessment/Plan Lines/Catheters IV Catheter Type (from [facility]): Peripheral IV [place] in Place (from [facility]): No Assessment/Plan Assessment/Plan [facility] Inpatient Progress Note Date of Service: 02/15/2016 Today's Assessment & Plan: Overall stable and doing well post op without any obvious signs of complications. With above assessment, I've recommended the following for today: 1. OK to d/c from my standpoint 2. Please include the following in patient's d/c instructions: Please call [phone] if any of fever, nausea, vomiting, discharge from wound , wound redness, increase or sudden pain, blood in stool or vomit, or any other unusual signs or symptoms. Also, please call the same number in a few days to schedule an appointment for your follow up visit. Patient may remove dressings tomorrow. Showers OK starting tomorrow. No swimming , hot tub or bath for 2 weeks. No lifting more than 25 lbs for 8 weeks. Thank you again for your great care of this very pleasant young lady and her wonderful family. If there are any questions, please feel free to call me at [phone]. TOTAL VISIT TIME: 20 minutes of which more than half was spent in [id number] discussion with the patient as well as coordination of care between multiple physicians and providers. Disclaimer: Inadvertent spelling and grammatical errors are likely due to EHR/ dictation software use and do not reflect on the quality of delivered patient care. Also, please note that the electronic time recorded on this node does not necessarily reflect the actual time of the visit. Updated Clinical Summary: A very-pleasant 25-year-old young lady with comorbid issues including BMI 50.9, admitted through the emergency department for symptomatically cholelithiasis and biliary colic. Outside workup consistent with diagnosis. Awaiting MRCP results. Patient will likely require semi-electively laparoscopic cholecystectomy. MRCP results 02/11/17 indicated lack of visualization of gallbladder on the official report, but my review as well as rechecking with the radiologist indicated that the patient still has her gallbladder in place. S /p lap marvin 02/14/16. Comorbidity/PMHx List: 1. BMI 50.9 2. Asthma 3. Anxiety 4. Ovarian cyst Subjective: No major events or complaints; minor incisional abdominal pain and under adequate control with medications; no n/v/d; no sob or cp; + flatus; - BM; - activity Objective: Vitals: See below I's & O's: See below Exam: GENERAL: On exam, the patient was lying in bed and appeared to be comfortable and in no acute distress. ABDOMEN: Soft, nontender and nondistended. There are no peritoneal signs or guarding. Incision dressings c/d/i w/o obvious underlying e/e/d/h. SKIN: Skin appears to be pink and feels warm to touch. NEUROLOGIC: Patient is awake, alert, and follows commands appropriately. Labs: See below Exam/Review of Systems Vital Signs Vitals Vital Signs Date Time Temp Pulse Resp B/P Pulse Ox O2 Delivery O2 Flow Rate FiO2 02/15/16 07:53 98.2 113 18 96/49 90 02/14/16 14:44 Nasal Cannula 02/14/16 14:19 2.0 Intake and Output 02/14/16 02/14/16 02/15/16 15:00 23:00 07:00 Intake Total 800 ml 110 ml 1600 ml Output Total 25 ml Balance 775 ml 110 ml 1600 ml Results Result Diagram: 02/15/16 0435 02/15/16 0435 TIO LOTT M.D. Feb 15, 2016 15:35
[2016-02-15 17:00] VITALS: BP 111/51; PULSE 98; RESP 16
--- NOTE | 2016-02-15 17:16 | DS ---
DATE OF ADMISSION: 02/11/2016 DATE OF DISCHARGE: 02/15/2016 CONSULTANTS: Dr. Abner Walker DISCHARGE DIAGNOSES: 1. Cholelithiasis. 2. Urinary tract infection. 3. Choledocholithiasis. 4. Suspect acute cholecystitis. 5. History of asthma. 6. Morbid obesity. HOSPITAL COURSE: This is a 25-year-old female with past medical history of morbid obesity, asthma, anxiety, came initially to [facility] for abdominal pain that started on the morning of 02/11/2016. Of note, at that time she was reporting to have right upper quadrant abdominal pain with radiation to her back, but no nausea and vomiting. She did have ultrasound over at [facility] that showed her to have gallstones in the region of the gallbladder neck with no gall bladder wall thickening or pericholecystic fluid. Due to insurance reasons, she was brought to [facility] for further evaluation. The patient also did undergo an MRI of the abdomen here at [facility] that did show no evidence of choledocholithiasis. She was see n by general surgeon. She was provided with IV hydration as well as empiric antibiotics. She was a lso placed on appropriate pain medication. She did have UTI per urine culture and she was treated w ith appropriate antibiotics. The patient did have symptomatic cholelithiasis and possible early acu te cholecystitis. After evaluation, it was decided for surgeon to have the patient for laparoscopic cholecystectomy. She did undergo procedure and did tolerate it well. She was otherwise optimized medically. She was placed on antibiotics for her UTI and bronchodilators as needed for asthma, alth ough she was noted with no active bronchospasm. She was noted to be morbidly obese and advised abou t weight reduction. During her course of stay, she did improve. The plan of care was discussed wit h patient and patient did verbalize her understanding. She was instructed to follow up with general surgeon within a week. On the day of discharge, the patient was in stable condition. DISCHARGE PHYSICAL EXAMINATION: VITAL SIGNS: Stable. CONDITION: Stable. DISCHARGE PLAN: 1. Diet is low fat, low cholesterol, reduced calorie. 2. The patient to follow up with Dr. Abner Walker within a week. DISCHARGE MEDICATIONS: 1. Ventolin HFA 2 puffs q hours as needed for shortness of breath. 2. Cipro 500 mg p.o. b.i.d. 3. Colace 100 mg p.o. b.i.d. 4. [place] 5/325 one tab p.o. q.4 hours as needed for pain. 5. Advair 250/50 one puff b.i.d. 6. Senna 1 tab p.o. b.i.d. as needed for constipation. DISCHARGE PROCESS TIME: 40 minutes. Discussed plan of care with Dr. Beck. Dictated By: LIO MCKINNEY WELDING MACHINE ASSEMBLER for CORINNA BARRIENTOS/TAISHA Conf#: [id number] DID#: [id number] CC: AMANDA KARIMI MD;*End*
[2016-02-16] MEDS ORDERED: BISACODYL 10 MG SUPP PR SCH (03:00)
[2016-02-16] MEDS ORDERED: DOCUSATE SODIUM 100 MG CAP PO SCH (09:00)
== END 2016-02-15 17:39 | disposition home or self-care (01) | DRG 418 ==
LOC: PP2 14:29
PROVIDERS: ADMIT Family Medicine; ATTEND Family Medicine
PROC: 0FT44ZZ Resection of Gallbladder, Percutaneous Endoscopic Approach (ICD-10-PCS; principal; 2016-02-14 12:00)
DX: K80.00 Calculus of gallbladder with acute cholecystitis without obstruction (principal); Z68.43 Body mass index [BMI] 50.0-59.9, adult; E66.01 Morbid (severe) obesity due to excess calories; J45.909 Unspecified asthma, uncomplicated; F41.9 Anxiety disorder, unspecified; N83.209 Unspecified ovarian cyst, unspecified side
CPT/HCPCS: 74181; 80048; 80053; 81001; 81003; 83036; 83735; 84100; 84439; 84443; 84703; 85025; 87086; 88304; J1170; J1650; J2175; J2250; J2270; J2370; J2405; J2543; J2710; J3010; J3480

== ENCOUNTER 2017-02-25 21:11 | Emergency (ER) | END 2017-02-26 01:00 | disposition home or self-care (01) ==

== ENCOUNTER 2017-03-16 21:38 | Emergency (ER) | END 2017-03-16 23:48 | disposition left against medical advice (07) ==

== ENCOUNTER 2017-04-22 13:25 | Emergency (ER) | END 2017-04-22 19:30 | disposition home or self-care (01) ==